=== PATIENT | female | born 1985 | race Caucasian/White ===

== ENCOUNTER 2018-09-06 13:06 | Emergency (ER) | payer OTHER, SELFPAY ==
[2018-09-06 14:05] VITALS: BP 100/63; PULSE 78; RESP 18; TEMP 98.5; O2SAT 100
--- NOTE | 2018-09-06 14:53 | ED PDOC ---
HPI: Female Pain History Per: Patient, Apprentice Technician (Nasim [place]er: [id number]) Current Symptoms Are (Timing): Still Present Severity: Mild Quality Of Discomfort: Dull Additional Complaint(s): Pt is a 32 y/o female presenting for evaluation of lower abdominal pain, n/v, and spotting. States that yesterday she discovered she was when she had multiple episodes of non bloody vomiting in the morning and a positive test. In the evening, she began having left lower quadrant pain and this morning she noticed spotting which prompted her ED visit. She denies dysuria, vaginal discharge, fever/chills. LMP 07/17/18. FOB at bedside PMD: None PMHX: none PSHx: non OB: 1 prior in 2007, no complications. 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 fibroids Medications: none Social: Denies habits x3 <Gary Flynn - Last Filed: 09/06/18 18:00> <Taylor Ibarra - Last Filed: 09/07/18 11:06> Time Seen by Provider: 09/06/18 14:06 Chief Complaint (Nursing): Female Genitourinary Supervising Attending Note - Supervising Attending Note The Documented history was done by the: Physician Record Retrieval Specialist, Attending Physician The documented physical exam was done by the: Physician Record Retrieval Specialist, Attending Physician The documented procedures were done by the: Physician Record Retrieval Specialist, Attending Physician - Attestation: I have personally seen and examined this patient.: Yes I have fully participated in the care of the patient.: Yes I have reviewed all pertinent clinical information, including history, physical exam and plan: Yes <Taylor Ibarra - Last Filed: 09/07/18 11:06> Past Medical History Reviewed: Historical Data, Nursing Documentation, Vital Signs Vital Signs: Last Vital Signs Temp 98.5 F 09/06/18 14:02 Pulse 78 09/06/18 14:02 Resp 18 09/06/18 14:02 BP 100/63 09/06/18 14:02 Pulse Ox 100 09/06/18 14:02 - Medical History PMH: No Chronic Diseases - Surgical History Surgical History: No Surg Hx - Family History Family History: States: No Known Family Hx <Gary Flynn - Last Filed: 09/06/18 18:00> Reviewed: Historical Data, Nursing Documentation, Vital Signs Vital Signs: Last Vital Signs Temp 98.5 F 09/06/18 14:02 Pulse 78 09/06/18 14:02 Resp 18 09/06/18 14:02 BP 100/63 09/06/18 14:02 Pulse Ox 100 09/06/18 18:03 - Medical History PMH: No Chronic Diseases <FredMaryanneneva A - Last Filed: 09/07/18 11:06> - Allergies Allergies/Adverse Reactions: Allergies Allergy/AdvReac Type Severity Reaction Status Date / Time No Known Allergies Allergy Unverified 09/06/18 14:02 Review of Systems Constitutional: Negative for: Fever, Weakness Gastrointestinal: Positive for: Nausea, Vomiting, Abdominal Pain. Negative for: Diarrhea, Constipation, Hematochezia, Hematemesis Genitourinary Female: Negative for: Dysuria <Gary Flynn - Last Filed: 09/06/18 18:00> ROS Statement: Except As Marked, All Systems Reviewed And Found Negative <KarycarolTaylor A - Last Filed: 09/07/18 11:06> Physical Exam - Physical Exam Appears: Positive for: No Acute Distress (Comfortable appearing female) Skin: Positive for: Normal Color Eye Exam: Positive for: Normal appearance Neck: Positive for: Normal Cardiovascular/Chest: Positive for: Regular Rate, Rhythm. Negative for: Murmur Respiratory: Positive for: Normal Breath Sounds. Negative for: Decreased Breath Sounds, Accessory Muscle Use, Crackles, Wheezing Pulses-Radial (L): 2+ Pulses-Radial (R): 2+ Gastrointestinal/Abdominal: Positive for: Normal Exam, Bowel Sounds, Soft, Tenderness ( LLQ on deep palpation). Negative for: Organomegaly, Distended, Rebound, Hernia Back: Negative for: L CVA Tenderness, R CVA Tenderness Extremity: Negative for: Pedal Edema Neurological/Psych: Positive for: Awake, Alert <Valerie Flynnneva - Last Filed: 09/06/18 18:00> - Reviewed Nursing Documentation Reviewed: Yes Vital Signs Reviewed: Yes - Physical Exam Head Exam: Positive for: ATRAUMATIC <FredJulianmaris Silverio - Last Filed: 03/08/19 11:06> - ECG O2 Sat by Pulse Oximetry: 100 <Gary Flynn - Last Filed: 09/06/18 18:00> - Laboratory Results Lab Results: Beta HCG, Quant 38995.00 mIU/mL 09/06/18 14:35 <Taylor Ibarra - Last Filed: 09/07/18 11:06> Medical Decision Making Medical Decision Making: Pt is a 32 y/o female presenting for evaluation of lower abdominal pain, n/v, and spotting. Pt has positive test at home, gestational age 7.2 weeks as per LMP. Positive Upreg Urine Dip- trace LES, negative Nitrate, large Blood TVUS OB BHcG Quant ABO BQuant- 93K TVUS- single live intrauterine gestation, subchorionic hemorrhage, 7x4mm Threatened AB Pt informed that she has threatened miscarriage. Advised bed rest, no exercise, physical exertion, sexual activity. Needs f/u with OB within 1 week. Will given referral. Advised to take vitamins as well. Tylenol for pain, avoid nsaids. <Gary Flynn - Last Filed: 09/06/18 18:00> Disposition - Patient ED Disposition Is Patient to be Admitted: No Counseled Patient/Family Regarding: Studies Performed, Diagnosis, Need For Followup - Disposition Disposition: Routine/Home Disposition Time: 18:01 <Gary Flynn - Last Filed: 09/06/18 18:00> - Patient ED Disposition Is Patient to be Admitted: No Doctor Will See Patient In The: Office <Taylor Ibarra - Last Filed: 09/07/18 11:06> - Clinical Impression Clinical Impression: Threatened - Disposition [facility]errals: [facility]Provider [facility]] Condition: FAIR Additional Instructions: Advised bed rest, no exercise, physical exertion, sexual activity. Needs f/u with OB within 1 week. Will given referral. Advised to take vitamins as well. Tylenol for pain, avoid nsaids. Instructions: Threatened Miscarriage Forms: [employer] (Al[place]ian), [facility] ED School/Work Excuse Print Language: [id number]
--- NOTE | 2018-09-06 17:20 | US ---
Date of service: 09/06/2018 PROCEDURE: OB Pelvic Ultrasound HISTORY: , LLQ pain and spotting COMPARISON: None available. FINDINGS: UTERUS: Single Live intrauterine gestation. CRL measures 1.0 cm equivalent to 7 weeks and 0 day of gestational age. Gestational sac diameter measures 2.3 cm equivalent to 6 weeks and 6 days of gestational age. age (Ultrasound estimated): 7 weeks and 0 day Date of delivery (Ultrasound estimated) : 04/25/2019 Heart rate: 149 bpm. Edith-gestational hemorrhage: There is a small 7 x 4 x 4 mm subchorionic hemorrhage. Uterus measures 7.1 x 4.2 x 5.3 cm. No mass CERVIX: Long and closed. No cervical abnormality seen. RIGHT OVARY: Measures 2.4 x 1.5 x 2.2 cm. No mass. Normal flow. LEFT OVARY: Measures 1.4 x 1.1 x 1.5 cm. No mass. Normal flow. FREE FLUID: None. OTHER FINDINGS: None. IMPRESSION: Single live intrauterine gestation with mean gestational age of 7 weeks and 0 day. The estimated date of delivery by ultrasound is 04/25/2019. The ultrasound dates correspond with the clinical dates. 7 x 4 x 4 mm subchorionic hemorrhage. Clinical follow-up is advised.
== END 2018-09-06 18:30 | disposition home or self-care (01) ==
LOC: H.ER 13:06
DX: O20.0 Threatened abortion (principal); Z3A.01 Less than 8 weeks gestation of pregnancy; O21.9 Vomiting of pregnancy, unspecified